=== PATIENT | female | born 1940 | race Caucasian/White ===

== ENCOUNTER 2016-08-31 08:02 | Outpatient (RCR) | payer MEDICARE, OTHER | END 2016-09-27 10:37 | disposition home or self-care (01) | PROVIDERS: ATTEND Nurse Practitioner Family | DX: M51.36 Other intervertebral disc degeneration, lumbar region (principal); M51.37 Other intervertebral disc degeneration, lumbosacral region ==

== ENCOUNTER → 2017-06-10 | Outpatient (CLI) | payer MEDICARE, OTHER ==
--- NOTE | 2017-06-11 10:31 | Diagnostic Imaging Report ---
EXAMINATION: Bilateral screening mammogram 2D views with tomosynthesis. The current study was also evaluated with a Computer Aided Detection (CAD) system. INDICATION: Screening. PERSONAL HISTORY: No current complaints stated on the questionnaire. COMPARISON: 06/11/2016. FINDINGS: The breasts are composed of heterogeneously dense parenchyma which may decrease mammographic sensitivity. There is no mass, architectural distortion, or suspicious cluster of calcifications. Allowing for technique and positional differences, no suspicious change is seen. IMPRESSION: No significant change. ACR BI-RADS Category 2: Benign findings. Result letter will be mailed to the patient. Note: At least 10% of breast cancer is not imaged by mammography. Dictated by: Dictated on workstation # [id number]
== END ==
LOC: RAD 09:45
PROVIDERS: ATTEND Nurse Practitioner
DX: Z12.31 Encounter for screening mammogram for malignant neoplasm of breast (principal)
CPT/HCPCS: 77067

== ENCOUNTER → 2018-06-03 | Outpatient (CLI) | payer MEDICARE, OTHER ==
--- NOTE | 2018-06-03 19:44 | Diagnostic Imaging Report ---
INDICATION: Routine screening. COMPARISON: Comparison is made with prior studies from 06/10/2017 and 05/30/2016. TECHNIQUE: 2D and 3D bilateral screening mammography was performed with computer-aided detection (CAD) system. FINDINGS: Both breasts are heterogeneously dense, limiting the sensitivity of mammography. The parenchymal pattern is stable. No discrete mass or malignant appearing microcalcifications are seen. The axillae are unremarkable. IMPRESSION: No mammographic features suspicious for malignancy are identified. ACR BI-RADS Category 1: Negative. Result letter will be mailed to the patient. Note: At least 10% of breast cancer is not imaged by mammography. Dictated by: Dictated on workstation # [id number]
== END ==
LOC: RAD 12:55
PROVIDERS: ATTEND Internal Medicine
DX: Z12.31 Encounter for screening mammogram for malignant neoplasm of breast (principal)
CPT/HCPCS: 77067

== ENCOUNTER 2018-09-10 10:27 | Observation (INO) | payer MEDICARE, OTHER ==
[~2018-09-10] VITALS: Ht 165.1 cm; Wt 65.3 kg
[2018-09-10] MEDS ORDERED: GABA-486 PO (11:10)
[2018-09-10] MEDS ORDERED: LOSA25TA6 PO (11:10)
[2018-09-10 11:40] LABS: BASOPHILS % (AUTO) 0 % (0-10); EOSINOPHILS # (AUTO) 0.2 10^3/uL (0.0-0.3); EOSINOPHILS % (AUTO) 2 % (0-10); HEMATOCRIT 40 % (35-52); HEMOGLOBIN 13.1 G/DL (11.5-16.0); LYMPHOCYTES # (AUTO) 1.3 X 10^3 (1.0-4.0); LYMPHOCYTES % (AUTO) 14 % (12-44); MEAN CORPUSCULAR HEMOGLOBIN 30 PG (25-34); MEAN CORPUSCULAR HGB CONC 33 G/DL (32-36); MEAN CORPUSCULAR VOLUME 91 FL (80-99); MEAN PLATELET VOLUME 9.1 FL (7.4-10.4); MONOCYTES # (AUTO) 0.4 X 10^3 (0.0-1.0); MONOCYTES % (AUTO) 4 % (0-12); NEUTROPHILS % (AUTO) 80 % (42-75); PLATELET COUNT 258 10^3/uL (130-400); RED BLOOD COUNT 4.44 10^6/uL (4.35-5.85); RED CELL DISTRIBUTION WIDTH 13.1 % (10.0-14.5)
--- NOTE | 2018-09-10 11:43 | ED Syncope ---
General Chief Complaint: Dizziness/Syncope Stated Complaint: DIZZINESS;NAUSEA Nursing Triage Note: TO ED PER W/C REPORTS WAS WALKING TO BATHROOM WHEN ONSET OF BEING DIZZY. HAS HX OF BEING DIZZY TOOK HER MECLIZINE TODAY. REPORT HAS SOME RELIEF BUT NOT COMPLETLEY GONE DID VOMIT WITH. Source of Information: Patient Exam Limitations: No Limitations (WINNIE RUFFIN) History of Present Illness Date Seen by Provider: Sep 10, 2018 Time Seen by Provider: 11:00 Initial Comments Patient is a 78-year-old female who presents to the emergency room with complaints of increasing dizziness for the past week. She reports that she has episodes of dizziness and vertigo from time to time and takes meclizine that usually helps but for the past week the dizziness has become worse and the meclizine does not resolve it completely. She reports that it is worse when she has her eyes open. She denies any shortness of breath, chest pain, palpitations , nausea, vomiting, or fevers. Current Symptoms: Dizziness (WINNIE RUFFIN) Allergies and Home Medications Allergies Coded Allergies: Benzocaine (Unverified Allergy, 02/13/11) Uncoded Allergies: PCN (Allergy, Unknown, 02/13/11) FORMALIN (Allergy, 02/13/11) Patient Home Medication List Home Medication List Reviewed: Yes (WINNIE RUFFIN) Review of Systems Constitutional: see HPI, dizziness; No fever Cardiovascular: no symptoms reported, see HPI (WINNIE RUFFIN) All Other Systems Reviewed Negative Unless Noted: Yes (WINNIE RUFFIN) Past Fyxazlw-Ttmrkl-Evpjmk Hx Past Med/Social Hx: Reviewed Nursing Past Med/Soc Hx (WINNIE RUFFIN) Patient Social History Alcohol Use: Denies Use Recreational Drug Use: No Smoking Status: Never a Smoker Recent Foreign Travel: No Contact w/Someone Who Travel: No Recent Infectious Disease Expo: No (WINNIE RUFFIN) Past Medical History Surgeries: Yes Respiratory: No Cardiac: Yes Hypertension Neurological: No Reproductive Disorders: No 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 oz. 65.483538bh; BMI Method:Stated General Appearance: No Apparent Distress, WD/WN HEENT: PERRL/EOMI, TMs Normal, Normal ENT Inspection, Pharynx Normal, Moist Mucous Membranes Neck: Full Range of Motion, Normal Inspection, Non Tender, Supple Cardiovascular: Regular Rate, Rhythm, No Edema, No Gallop, No JVD, No Murmur, Normal Peripheral Pulses Respiratory: Chest Non Tender, Lungs Clear, Normal Breath Sounds, No Accessory Muscle Use, No Respiratory Distress Gastrointestinal: Normal Bowel Sounds, No Organomegaly, No Pulsatile Mass, Non Tender, Soft Extremities: Normal Capillary Refill, Normal Inspection, Normal Range of Motion , Non Tender, No Calf Tenderness, No Pedal Edema Neurologic/Psychiatric: Alert, Oriented x3, No Motor/Sensory Deficits, Normal Mood/Affect Cranial Nerves: Normal Hearing, Normal Speech, PERRL Coordination/Gait: Normal Finger to Nose Motor/Sensory: No Motor Deficit, No Sensory Deficit Skin: Normal Color, Warm/Dry (WINNIE RUFFIN) HEENT: PERRL/EOMI, Pharynx Normal Cardiovascular: Regular Rate, Rhythm, No Murmur Respiratory: Lungs Clear, Normal Breath Sounds Neurologic/Psychiatric: Alert, Oriented x3, No Motor/Sensory Deficits (MELANIA TRINH MD) Progress/Results/Core Measures Results/Orders Lab Results Laboratory Tests Test 09/10/18 11:20 09/10/18 13:46 Range/Units White Blood Count 10.0 4.3-11.0 10^3/uL Red Blood Count 4.44 4.35-5.85 10^6/uL Hemoglobin 13.1 11.5-16.0 G/DL Hematocrit 40 35-52 % Mean Corpuscular Volume 91 80-99 FL Mean Corpuscular Hemoglobin 30 25-34 PG Mean Corpuscular Hemoglobin Concent 33 32-36 G/DL Red Cell Distribution Width 13.1 10.0-14.5 % Platelet Count 258 130-400 10^3/uL Mean Platelet Volume 9.1 7.4-10.4 FL Neutrophils (%) (Auto) 80 H 42-75 % Lymphocytes (%) (Auto) 14 12-44 % Monocytes (%) (Auto) 4 0-12 % Eosinophils (%) (Auto) 2 0-10 % Basophils (%) (Auto) 0 0-10 % Neutrophils # (Auto) 8.0 H 1.8-7.8 X 10^3 Lymphocytes # (Auto) 1.3 1.0-4.0 X 10^3 Monocytes # (Auto) 0.4 0.0-1.0 X 10^3 Eosinophils # (Auto) 0.2 0.0-0.3 10^3/uL Basophils # (Auto) 0.0 0.0-0.1 10^3/uL Sodium Level 139 135-145 MMOL/L Potassium Level 4.0 3.6-5.0 MMOL/L Chloride Level 105 98-107 MMOL/L Carbon Dioxide Level 24 21-32 MMOL/L Anion Gap 10 5-14 MMOL/L Blood Urea Nitrogen 29 H 7-18 MG/DL Creatinine 0.82 0.60-1.30 MG/DL Estimat Glomerular Filtration Rate > 60 BUN/Creatinine Ratio 35 Glucose Level 134 H 70-105 MG/DL Calcium Level 9.5 8.5-10.1 MG/DL Corrected Calcium 9.2 8.5-10.1 MG/DL Total Bilirubin 0.5 0.1-1.0 MG/DL Aspartate Amino Transf (AST/SGOT) 24 5-34 U/L Alanine Aminotransferase (ALT/SGPT) 20 0-55 U/L Alkaline Phosphatase 89 40-136 U/L Total Protein 7.4 6.4-8.2 GM/DL Albumin 4.4 3.2-4.5 GM/DL Urine Color YELLOW Urine Clarity CLEAR Urine pH 7 5-9 Urine Specific [place] 1.010 L 1.016-1.022 Urine Protein 2+ H NEGATIVE Urine Glucose (UA) NEGATIVE NEGATIVE Urine Ketones 3+ H NEGATIVE Urine Nitrite NEGATIVE NEGATIVE Urine Bilirubin NEGATIVE NEGATIVE Urine Urobilinogen NORMAL NORMAL MG/DL Urine Leukocyte Esterase NEGATIVE NEGATIVE Urine RBC (Auto) 2+ H NEGATIVE Urine RBC 2-5 H /HPF Urine WBC 2-5 /HPF Urine Squamous Epithelial Cells RARE /HPF Urine Renal Epithelial Cells NONE /HPF Urine Crystals NONE /LPF Urine Bacteria NEGATIVE /HPF Urine Casts PRESENT /LPF Urine Hyaline Casts RARE /LPF Urine Mucus NEGATIVE /LPF Urine Yeast TRACE /HPF Urine Culture Indicated NO (MELANIA TRINH MD) My Orders Orders - MELANIA TRINH MD Hydralazine Injection (Apresoline Inject (09/10/18 13:15) Ns Iv 500 Ml (Sodium Chloride 0.9%) (09/10/18 13:34) Amlodipine Tablet (Norvasc Tablet) (09/10/18 14:45) (MELANIA TRINH MD) Medications Given in ED Current Medications Medications Dose Ordered Sig/Starla Route Start Time Stop Time Status Last Admin Dose Admin Amlodipine Besylate 10 mg ONCE ONCE PO 09/10/18 14:45 09/10/18 14:46 DC 09/10/18 14:46 10 MG Clonidine HCl 0.2 mg ONCE ONCE PO 09/10/18 12:15 09/10/18 12:16 DC 09/10/18 12:27 0.2 MG Hydralazine HCl 10 mg ONCE ONCE IV 09/10/18 13:15 09/10/18 13:16 DC 09/10/18 13:11 10 MG Ondansetron HCl 8 mg ONCE ONCE IVP 09/10/18 12:30 09/10/18 12:31 DC 09/10/18 12:32 8 MG Sodium Chloride 500 ml @ 0 mls/hr Q0M ONCE IV 09/10/18 13:34 09/10/18 13:35 DC 09/10/18 13:49 500 MLS/HR (MELANIA TRINH MD) Vital Signs/I&O 09/10/18 09/10/18 10:30 13:24 Temp 96.4 Pulse 60 64 Resp 18 15 B/P (MAP) 210/82 (124) 176/70 (105) Pulse Ox 99 (MELANIA TRINH MD) Blood Pressure Mean: 124 Progress Progress Note : Time: 12:28 Progress Note Patient was assisted to the restroom by nursing staff to collect a urine sample. She was able to void but also had an episode of diarrhea contaminating the sample. In assisting her back to bed she became nauseated and vomited. Zofran was ordered. I will be sending the patient to CT scan of her head. (WINNIE RUFFIN) Progress Note : Progress Note 1315: I have assumed care of the patient from Winnie Ruffin APRN. I have seen and examined the patient. I agree with above except as indicated. Hydralazine [address] does not show any acute findings. Pending UA. 1350: UA collected via straight catheter. Normal saline 500 mL bolus. Patient's blood pressure is improved some but still remains 180s over 70s. Monitor patient. 1435: Amlodipine 10 mg IV ordered. Patient still has blood pressures in the 180s systolic. Due to her labile hypertension, patient will need admission. I did discuss the case with Dr. Leavitt she agrees to admission, observation status. Nausea and vomiting and dizziness have improved. She has completed her saline bolus. We will continue hydration inpatient. Discussed with patient and family who agree with plan. (MELANIA TRINH MD) Initial ECG Impression Date: Sep 10, 2018 Initial ECG Impression Time: 11:21 Initial ECG Rate: 56 Initial ECG Rhythm: Normal Sinus Initial ECG Intervals: Normal Initial ECG Impression: Normal Initial ECG Comparisson: Unchanged Comment Atrial premature complexes noted. (WINNIE RUFFIN) Diagnostic Imaging Diagonstic Imaging: CT Plain Films/CT/US/NM/MRI: head Comments [facility], [place] NAME: JIMBO THOMPSON [facility] REC#: [id number] PT STATUS: REG ER : 1940 PHYSICIAN: WINNIE RUFFINP ADMIT DATE: 09/10/18/ER Draft Date of Exam:09/10/18 CT HEAD WO PROCEDURE: CT head without contrast. TECHNIQUE: Multiple contiguous axial images were obtained through the brain without the use of intravenous contrast. INDICATION: Dizziness. FINDINGS: Ventricles and sulci are diffusely prominent. There is moderate low density within the deep white matter of both hemispheres. No hemorrhage is identified. There is no geographic low density to indicate a territorial infarct. Visualized paranasal sinuses are clear. IMPRESSION: Involutional findings within brain without CT evidence of acute intracranial abnormality. Dictated on workstation # [id number] Dict: 09/10/18 1254 Trans: 09/10/18 1258 [facility] [id number] Interpreted by: IRIS ESTEVEZ MD Electronically signed by: (MELANIA TRINH MD) Departure Communication (Admissions) Time/Spoke to Admitting Phy: 14:35 (MELANIA TRINH MD) Impression Primary Impression: Labile hypertension Additional Impressions: Nausea and vomiting Qualified Codes: R11.2 - Nausea with vomiting, unspecified Dizziness Disposition: ADMITTED INPATIENT Condition: Stable Admissions Decision to Admit Reason: Admit from ER (General) Decision to Admit/Date: Sep 10, 2018 Time/Decision to Admit Time: 14:35 (MELANIA TRINH MD) Departure-Patient Inst. Referrals: SHAY BELTRAN MD (PCP/Family) Primary Care Physician WINNIE RUFFIN Sep 10, 2018 11:43 MELANIA TRINH MD Sep 10, 2018 13:21
[2018-09-10 11:57] LABS: ALANINE AMINOTRANSFERASE 20 U/L (0-55); ALBUMIN 4.4 GM/DL (3.2-4.5); ALKALINE PHOSPHATASE 89 U/L (40-136); BILIRUBIN,TOTAL 0.5 MG/DL (0.1-1.0); BUN/CREATININE RATIO 35; CALCIUM 9.5 MG/DL (8.5-10.1); CARBON DIOXIDE 24 MMOL/L (21-32); CHLORIDE 105 MMOL/L (98-107); CREATININE SERUM 0.82 MG/DL (0.60-1.30); GFR ESTIMATED > 60; GLUCOSE 134 MG/DL (70-105); SODIUM 139 MMOL/L (135-145); TOTAL PROTEIN 7.4 GM/DL (6.4-8.2)
[2018-09-10] MEDS ORDERED: cloNIDine 0.2 MG (CATAPRES) TAB PO ONE (12:15)
[2018-09-10] MEDS ORDERED: ONDANSETRON 4 MG/2 ML (SDV) Z0FRAN ONE (12:26)
[2018-09-10] MEDS ORDERED: ONDANSETRON 4 MG/2 ML (SDV) Z0FRAN IVP ONE (12:30)
--- NOTE | 2018-09-10 12:59 | Diagnostic Imaging Report ---
PROCEDURE: CT head without contrast. TECHNIQUE: Multiple contiguous axial images were obtained through the brain without the use of intravenous contrast. INDICATION: Dizziness. FINDINGS: Ventricles and sulci are diffusely prominent. There is moderate low density within the deep white matter of both hemispheres. No hemorrhage is identified. There is no geographic low density to indicate a territorial infarct. Visualized paranasal sinuses are clear. IMPRESSION: Involutional findings within brain without CT evidence of acute intracranial abnormality. Dictated by: Dictated on workstation # [id number]
[2018-09-10] MEDS ORDERED: hydrALAZINE (APESOLINE) 20 MG/ML VIAL IV ONE (13:15)
[2018-09-10 13:24] VITALS: BP 176/70
[2018-09-10] MEDS ORDERED: NS IV 500 ML 500 ML IV ONE (13:34)
[2018-09-10 13:56] LABS: BILIRUBIN,URINE NEGATIVE (NEGATIVE); CLARITY,URINE CLEAR; COLOR,URINE YELLOW; GLUCOSE, URINE (UA) NEGATIVE (NEGATIVE); KETONES,URINE 3+ (NEGATIVE); LEUKOCYTE ESTERASE ,URINE NEGATIVE (NEGATIVE); NITRITE,URINE NEGATIVE (NEGATIVE); PH,URINE 7 (5-9); PROTEIN,URINE 2+ (NEGATIVE); UROBILINOGEN,URINE NORMAL (NORMAL)
[2018-09-10 14:29] LABS: BACTERIA,URINE NEGATIVE /HPF; HYALINE CASTS, URINE RARE /LPF; SQUAMOUS EPITHELIAL CELL,UR RARE /HPF
[2018-09-10 14:30] LABS: YEAST,URINE TRACE /HPF
[2018-09-10] MEDS ORDERED: amLODIPine 10 MG (NORVASC) TAB PO ONE (14:45)
[2018-09-10 15:25] VITALS: BP 178/68
[2018-09-10] MEDS ORDERED: ONDANSETRON 4 MG/2 ML (SDV) Z0FRAN IVP PRN (15:45)
[2018-09-10] MEDS: NS IV 1000 ML 1,000 ML IV SCH (15:50)
[2018-09-10] MEDS ORDERED: LEVO5TAB28 PO (15:55)
[2018-09-10] MEDS ORDERED: FLUT9.9S NS (15:55)
[2018-09-10] MEDS ORDERED: MECL-106 PO (15:56)
[2018-09-10] MEDS ORDERED: OMG1KC PO (16:00)
[2018-09-10] MEDS ORDERED: MULT-35 PO (16:00)
[2018-09-10] MEDS ORDERED: UBID100C44 PO (16:00)
[2018-09-10] MEDS ORDERED: ASCO-262 PO (16:00)
[2018-09-10] MEDS ORDERED: GLUC100016 PO (16:00)
[2018-09-10] MEDS ORDERED: CALC-927 PO (16:00)
[2018-09-10] MEDS ORDERED: ASPI-983 PO (16:00)
[2018-09-10] MEDS ORDERED: CHOL10007 PO (16:00)
[2018-09-10] MEDS ORDERED: MECLIZINE 25 MG (ANTIVERT) TAB PO PRN (19:00)
[2018-09-10] MEDS ORDERED: ONDANSETRON 4 MG/2 ML (SDV) Z0FRAN IV PRN (20:15)
[2018-09-10] MEDS ORDERED: ACETAMINOPHEN 325 MG TABLET PO PRN (20:15)
[2018-09-10] MEDS ORDERED: NITROGLYCERIN 2% OINT 1 GM UNIT DOSE PACKET TOP PRN (20:15)
[2018-09-10] MEDS ORDERED: ANTACID SUSP 30 ML UDC (MYLANTA) PO PRN (20:15)
[2018-09-10] MEDS ORDERED: ACETAMINOPHEN 500 MG TAB (TYLENOL) PO PRN (20:15)
[2018-09-10] MEDS ORDERED: BENZONATATE 100 MG (TESSALON) CAPSULE PO PRN (20:15)
[2018-09-10] MEDS ORDERED: MILK OF MAGNESIA 400 MG/5 ML 30 ML UDC PO PRN (20:15)
[2018-09-10 20:25] VITALS: BP 127/59
[2018-09-10] MEDS: GABAPENTIN 100 MG (NEURONTIN) CAP PO SCH (20:51)
[2018-09-10] MEDS ORDERED: FLUTICASONE NASAL SPRAY (FLONASE) 16 GM BTL NS SCH (21:00)
[2018-09-10] MEDS ORDERED: LORATADINE (CLARITIN) 10 MG TAB PO SCH (21:00)
[2018-09-10] MEDS ORDERED: LOSARTAN 25 MG (COZAAR) TAB PO SCH (21:00)
[2018-09-10] MEDS ORDERED: NON-FORMULARY MEDICATION 1 EA EA (Losartan Potassium 25 MG) PO SCH (21:00)
[2018-09-10] MEDS ORDERED: LEVOCETIRIZINE 5 MG TAB (XYZAL) NON-FORMULARY PO SCH (21:00)
[2018-09-10] MEDS ORDERED: NON-FORMULARY MEDICATION 1 EA EA (Fluticasone Propionate (Flonase Allergy Relief) 2 SPRAY) NS SCH (21:00)
[2018-09-11 00:09] VITALS: BP 144/68
[2018-09-11] MEDS: NS IV 1000 ML 1,000 ML IV SCH ×2 (01:39→11:29)
[2018-09-11 04:00] VITALS: BP 136/62
[2018-09-11 05:49] LABS: BASOPHILS % (AUTO) 0 % (0-10); EOSINOPHILS # (AUTO) 0.2 10^3/uL (0.0-0.3); EOSINOPHILS % (AUTO) 3 % (0-10); HEMATOCRIT 36 % (35-52); HEMOGLOBIN 11.7 G/DL (11.5-16.0); LYMPHOCYTES # (AUTO) 1.8 X 10^3 (1.0-4.0); LYMPHOCYTES % (AUTO) 29 % (12-44); MEAN CORPUSCULAR HEMOGLOBIN 30 PG (25-34); MEAN CORPUSCULAR HGB CONC 33 G/DL (32-36); MEAN CORPUSCULAR VOLUME 91 FL (80-99); MONOCYTES # (AUTO) 0.4 X 10^3 (0.0-1.0); MONOCYTES % (AUTO) 7 % (0-12); NEUTROPHILS # (AUTO) 3.8 X 10^3 (1.8-7.8); NEUTROPHILS % (AUTO) 61 % (42-75); PLATELET COUNT 260 10^3/uL (130-400); RED BLOOD COUNT 3.93 10^6/uL (4.35-5.85); RED CELL DISTRIBUTION WIDTH 13.3 % (10.0-14.5); WHITE BLOOD COUNT 6.3 10^3/uL (4.3-11.0)
[2018-09-11 06:14] LABS: ALANINE AMINOTRANSFERASE 15 U/L (0-55); ALBUMIN 3.6 GM/DL (3.2-4.5); ALKALINE PHOSPHATASE 79 U/L (40-136); BILIRUBIN,TOTAL 0.6 MG/DL (0.1-1.0); BUN/CREATININE RATIO 27; CALCIUM 8.7 MG/DL (8.5-10.1); CARBON DIOXIDE 21 MMOL/L (21-32); CHLORIDE 109 MMOL/L (98-107); CREATININE SERUM 0.71 MG/DL (0.60-1.30); GFR ESTIMATED > 60; GLUCOSE 91 MG/DL (70-105); POTASSIUM 3.5 MMOL/L (3.6-5.0); SODIUM 140 MMOL/L (135-145); TOTAL PROTEIN 5.9 GM/DL (6.4-8.2)
[2018-09-11 08:00] VITALS: BP 144/65
[2018-09-11] MEDS ORDERED: amLODIPine 5 MG (NORVASC) TAB PO SCH (09:00)
[2018-09-11] MEDS ORDERED: amLODIPine 10 MG (NORVASC) TAB PO SCH (09:00)
[2018-09-11] MEDS: GABAPENTIN 100 MG (NEURONTIN) CAP PO SCH (09:13)
--- NOTE | 2018-09-11 09:14 | Short Stay Summary-Hospitalist ---
History of Present Illness HPI/Chief Complaint Pt is a 78yoCF with a PMH of HTN who presented to the ER with CC of dizziness that started abruptly yesterday afternoon. She states she didnt' feel well and walked ot her bedroom and noticed her hamper was spinning. She lowered herself to the ground and rested her head on the hamper to see if it would pass. When it did not resolve with rest she crawled to her phone and called her daughter who called 911. She was found to be very hypertensive at that time and EMS helped her get to the car and her daughter drove her to the hospital. She remained hypertensive here with SBP 210. This was treated with clonidine and hydralazine without much improvement. She developed dry heaving at that time too and needed antiemetics. She was then given amlodipine and admitted for hypertensive urgency for observation. Source: patient Date Seen 09/11/18 Time Seen by a Provider: 09:30 Attending Physician Benedict Leavitt MD PCP Steven Restrepo MD Referring Physician Date of Admission Sep 10, 2018 at 14:54 Home Medications & Allergies Home Medications Reviewed patient Home Medication Reconciliation performed by pharmacy medication reconciliations paint technician and/or nursing. Patients Allergies have been reviewed. Allergies Allergies Coded Allergies benzocaine (Unverified Allergy, Unknown, 09/10/18) Uncoded Allergies FORMALIN ( Allergy, Unknown, 09/10/18) PCN ( Allergy, Unknown, 02/13/11) Past Icnwdtu-Kksmuc-Jynwns Hx Past Med/Social Hx: Reviewed Nursing Past Med/Soc Hx Patient Social History Alcohol Use: Denies Use Recreational Drug Use: No Smoking Status: Never a Smoker Physical Abuse Screen: No Sexual Abuse: No Recent Foreign Travel: No Contact w/other who traveled: No Recent Infectious Disease Expo: No Immunizations Up To Date Date of Pneumonia Vaccine: Aug 15, 2018 Date of Influenza Vaccine: Jul 07, 2018 Seasonal Allergies Seasonal Allergies: Yes Past Medical History Cardiac: Hypertension Reproductive: No Sexually Transmitted Disease: No HIV/AIDS: No Menopausal HEENT: Double Vision History of Blood Disorders: No Adverse Reaction to Blood Perez: No Family History Reviewed Nursing Family Hx Diabetes mellitus 19 FATHER G8 SISTER Hypertension 19 FATHER Review of Systems Constitutional: dizziness EENTM: No blurred vision, No double vision, No nose congestion, No throat pain Respiratory: No cough, No dyspnea on exertion, No short of breath Cardiovascular: No chest pain, No edema, No palpitations Gastrointestinal: No abdominal pain, No constipation, No diarrhea, No nausea, No vomiting Genitourinary: No dysuria, No frequency Musculoskeletal: No joint pain, No muscle pain Skin: No lesions, No rash Psychiatric/Neurological: Denies Headache, Denies Numbness, Denies Tingling Physical Exam Physical Exam Vital Signs Vital Signs - First Documented 09/10/18 09/10/18 09/10/18 10:30 13:24 15:10 Temp 96.4 Pulse 60 Resp 18 B/P (MAP) 210/82 (124) Pulse Ox 99 O2 Delivery Room Air Capillary Refill : Less Than 3 Seconds Height, Weight, BMI Height: 5'5.00" Weight: 144lbs. 0.7oz. 65.134897kq; 24.0 BMI Method:Stated General Appearance: No Apparent Distress, WD/WN HEENT: PERRL/EOMI, Moist Mucous Membranes Neck: Non Tender, Supple Respiratory: Lungs Clear, No Respiratory Distress Cardiovascular: Regular Rate, Rhythm, No Murmur Gastrointestinal: Normal Bowel Sounds, Non Tender, Soft Extremity: Normal Capillary Refill, No Calf Tenderness Neurologic/Psychiatric: Alert, Oriented x3, Normal Mood/Affect Skin: Normal Color, Warm/Dry Results Results/Procedures Labs Laboratory Tests 09/11/18 05:40 Patient resulted labs reviewed. Imaging: Reviewed Imaging Report Short Stay Diagnosis Discharge Diagnosis-Short Stay Admission Diagnosis Hypertensive Urgency Final Discharge Diagnosis Hypertensive Urgency Conclusion Plan Hypertensive Urgency BP improved today with amlodipine Continue Amlodipine and losartan Vertigo Meclizine prn PT/OT to evaluate gait Will DC home if steady gait Clinical Quality Measures DVT/VTE Risk/Contraindication: Risk Factor Score Per Nursin RFS Level Per Nursing on Admit: 2=Moderate BENEDICT LEAVITT MD Sep 11, 2018 09:14
[2018-09-11] MEDS ORDERED: AMLO5TAB7 PO (09:27)
--- NOTE | 2018-09-11 11:49 | Discharge Inst-Simple/Standard ---
Discharge Inst-Standard Discharge Medications New, Converted or Re-Newed RX: Transmitted to Pharmacy Patient Instructions/Follow Up Plan of Care/Instructions/FU: Please continue to take your medications as written. Please follow up with Dr Restrepo's office next week. Activity as Tolerated: Yes Discharge Diet: Cardiac Diet Return to The Hospital For: Chest pain, shortness of breath, worsening dizziness, confusion, if you feel you are getting worse. BENEDICT ROLLINS MD Sep 11, 2018 11:49
--- NOTE | 2018-09-11 11:50 | Physical Therapy Evaluation ---
PT Evaluation-General Medical Diagnosis Admission Date Sep 10, 2018 at 14:54 Medical Diagnosis: Labile HTN/N&V/dizziness Onset Date: Sep 10, 2018 Therapy Diagnosis Therapy Diagnosis: debility Height/Weight Height (Feet): 5 Height (Inches): 5.00 Weight (Pounds): 144 Weight (Ounces): 0.7 Precautions Precautions/Isolations: Fall Prevention, Standard Precautions Weight Bear Status Right Lower Extremity: Right Weight Bearing/Tolerated Left Lower Extremity: Left Weight Bearing/Tolerated Referral Physician: Dagmar Reason for Referral: Evaluation/Treatment Medical History Pertinent Medical History: HTN Current History ED secondary to uncontrolled dizziness with vomiting. Currently resolved Reviewed History: Yes Social History Home: Single Level Current Living Status: Alone Prior/Core FIM Prior Level of Function Therapy Code Descriptions/Definitions Functional [place] Measure: 0=Not Assessed/NA 4=Minimal Assistance 1=Total Assistance 5=Supervision or Setup 2=Maximal Assistance 6=Modified [place] 3=Moderate Assistance 7=Complete [place] Therapy Quality Codes: 6 Independent with activity with or without an assistive device 5 Patient requires set up or clean up by helper. Patient completes activity by themselves 4 Supervision or touching assist (CGA). [place] provide cues , steadying assist 3 The helper provides less than half the effort to complete the activity 2 The helper provides more than half the effort to complete the activity 1 Dependent. The helper does all the effort to complete an activity 7 Patient refused to complete or attempt activity 9 The patient did not perform the activity before the current illness or injury 88 Not attempted due to Medical conditions or safety concerns Functional Abilities and Goals: Independent: Patient completed the activities by him/herself, with or without an assistive device, with no assistance from a helper. Needed Some Help: Patient needed partial assistance from another person to complete activities. Dependent: A helper completed the activities for the patient. Unknown: Not Applicable: Bed Mobility: 7 Transfers (B,C,W/C) (FIM): 7 Gait: 6 Stairs: 6 Prior Devices Use: None, Walker Prior Device Use: FWW PRN PT Evaluation-Current Subjective Patient agrees to PT. No c/o at this time. Pain Numeric Pain Scale: 0-No Pain Location: No Pain Reported Objective Patient Orientation: Normal For Age Problem Solving: Good Attachments: IV ROM/Strength ROM Lower Extremities bilateral LE WFL Strength Lower Extremities 4+/5 grossly bilaterally Integumentary/Posture Integumentary refer to nursing notes Bowel Incontinence: No Bladder Incontinence: No Posture slight trunk flexed posture Neuromuscular (Tone, Coordination, Reflexes) grossly intact Sensory Vision: Wears Glasses Hearing: Functional Sensation Right Lower Extremit: Intact Sensation Left Lower Extremity: Intact Transfers Therapy Code Descriptions/Definitions Functional [place] Measure: 0=Not Assessed/NA 4=Minimal Assistance 1=Total Assistance 5=Supervision or Setup 2=Maximal Assistance 6=Modified [place] 3=Moderate Assistance 7=Complete [place] Transfers (B, C, W/C) (FIM): 7 Scootin Rollin Supine to/from Sit: 7 Sit to/from Stand: 7 Gait Mode of Locomotion: Walk Anticipated Mode of Locomotion: Walk Gait (FIM): 6 Distance (FIM): 3=150 ft Distance: 350' Gait Level of Assist: 6 Gait Assistive Device: FWW Comments/Gait Description steady, functional gait sequence Balance Sitting Static: Normal Sitting Dynamic: Normal Standing Static: Normal Standing Dynamic: Normal Assessment/Needs 78 y.o .female, is currently at [facility] with all gross motor skills. Patient has established FWW and 4WW at home with good family support. No c/o dizziness currently. Dr. Leavitt notified. No skilled PT indicated. Rehab Potential: Good PT Plan Treatment/Plan Treatment Plan: Discontinue PT, goals met Treatment Plan: Other Treatment Duration: Sep 11, 2018 Frequency: 1 time per week Estimated Hrs Per Day: .25 hour per day Patient and/or Family Agrees t: Yes Discharge Recommendations Therapy D/C Recommendations: Home w/ Family Support, Home Independently Time/GCodes Time In: 1127 Time Out: 1141 Total Billed Treatment Time: 14 Total Billed Treatment 1 visit EVLowC 14 min G Codes Necessary: Yes PT/OT Therapy GCodes Therapy Functional Limitation: Physical Therapy Test(s)/Tool used to determine: Level of Assistance Scale Functional Limitation-Current Charge Code: MOBCUR Modifier: CI Functional Limitation-Goal Charge Code: MOBGOAL Modifier: CI Functional Limitation-D/C Charge Codes: MOBDC Modifier: CI ALENA MEYER PT Sep 11, 2018 11:50
[2018-09-11 12:00] VITALS: BP 138/68
[2018-09-11 13:45] VITALS: BP 144/65
== END 2018-09-11 11:50 | disposition home or self-care (01) ==
LOC: EDUNIT# 10:27 → ER 10:28 → 4TH 14:25 → UNDOADMOB 14:54 → 4TH 15:14 → UNDODISOB 09-11 13:45
PROVIDERS: ADMIT Family Medicine; ATTEND Family Medicine
DX: I16.0 Hypertensive urgency (principal); R42 Dizziness and giddiness; R11.2 Nausea with vomiting, unspecified
CPT/HCPCS: 36415; 51701; 70450; 80053; 81000; 85025; 93005; 96361; 96374; 96375

== ENCOUNTER → 2019-06-09 | Outpatient (CLI) | payer MEDICARE, OTHER ==
[~2019-06-09] MED LIST: AMLO5TAB9 PO; ASCO-262 PO; ASPI-983 PO; CALC-927 PO; CHOL10007 PO; FLUT9.9S NS; GABA-486 PO; GLUC100016 PO; LEVO5TAB28 PO; LOSA25TA41 PO; MECL-106 PO; MULT-35 PO; OMG1KC PO; UBID100C44 PO
--- NOTE | 2019-06-09 12:23 | Diagnostic Imaging Report ---
Indication: Routine screening. Comparison is made with prior mammogram 06/03/2018 and 06/10/2017. 2-D and 3-D bilateral screening mammography was performed with CAD. Both breasts are heterogeneously dense, limiting the sensitivity of mammography. No mass or malignant-appearing microcalcifications are seen. The axillae are unremarkable. Impression: BI-RADS category 1. No mammographic features suspicious for malignancy are identified. ACR BI-RADS Category 1: Negative. Result letter will be mailed to the patient. Note: At least 10% of breast cancer is not imaged by mammography. Dictated by: Dictated on workstation # [id number]
== END ==
LOC: RAD 09:57
PROVIDERS: ATTEND Internal Medicine
DX: Z12.31 Encounter for screening mammogram for malignant neoplasm of breast (principal)
CPT/HCPCS: 77067

== ENCOUNTER → 2021-02-10 | Outpatient (CLI) | payer MEDICARE, OTHER ==
[~2021-02-10] MED LIST changes: +AMLO-250 PO; -AMLO5TAB9 PO; +ASPI-1238 PO; -ASPI-983 PO; -MECL-106 PO; +MECL-149 PO
--- NOTE | 2021-02-13 11:10 | Diagnostic Imaging Report ---
INDICATION: Routine screening. COMPARISON: 06/09/2019 and 06/03/2018. TECHNIQUE: 2D and 3D bilateral screening mammography was performed with CAD. FINDINGS: Both breasts are heterogeneously dense, limiting the sensitivity of mammography. The parenchymal pattern is stable. No mass or malignant appearing microcalcifications are seen. The axillae are unremarkable. IMPRESSION: No mammographic features suspicious for malignancy are identified. ACR BI-RADS Category 1: Negative. Result letter will be mailed to the patient. Note: At least 10% of breast cancer is not imaged by mammography. Dictated by: Dictated on workstation # [id number]
== END ==
LOC: RAD 14:23
PROVIDERS: ATTEND Obstetrics & Gynecology Gynecology
DX: Z12.31 Encounter for screening mammogram for malignant neoplasm of breast (principal)
CPT/HCPCS: 77063; 77067

== ENCOUNTER → 2022-02-26 | Outpatient (CLI) | payer MEDICARE, OTHER ==
--- NOTE | 2022-02-26 13:42 | Diagnostic Imaging Report ---
INDICATION: Routine screening. COMPARISON: 02/10/2021 and 06/09/2019. TECHNIQUE: 2D and 3D bilateral screening mammography was performed with CAD. FINDINGS: Both breasts are heterogeneously dense, limiting the sensitivity of mammography. No mass or malignant-appearing microcalcifications are seen. There are benign parenchymal and vascular calcifications bilaterally. The axillae are unremarkable. IMPRESSION: No mammographic features suspicious for malignancy are identified. ACR BI-RADS Category 2: Benign findings. Result letter will be mailed to the patient. Note: At least 10% of breast cancer is not imaged by mammography. Dictated by: Dictated on workstation # [id number]
== END ==
LOC: RAD 11:15
PROVIDERS: ATTEND Nurse Practitioner Family
DX: Z12.31 Encounter for screening mammogram for malignant neoplasm of breast (principal)
CPT/HCPCS: 77063; 77067

== ENCOUNTER → 2022-12-11 | Outpatient (CLI) | payer MEDICARE, OTHER | LOC: WOUNDCARE 09:03 | PROVIDERS: ATTEND Family Medicine | DX: L89.313 Pressure ulcer of right buttock, stage 3 (principal); L24.A2 Irritant contact dermatitis due to fecal, urinary or dual incontinence; I10 Essential (primary) hypertension | CPT/HCPCS: 11042; A6212; G0463 ==

== ENCOUNTER → 2022-12-17 | Outpatient (CLI) | payer MEDICARE, OTHER | LOC: WOUNDCARE 09:57 | PROVIDERS: ATTEND Family Medicine | DX: L89.313 Pressure ulcer of right buttock, stage 3 (principal); L24.A2 Irritant contact dermatitis due to fecal, urinary or dual incontinence; I10 Essential (primary) hypertension; I96 Gangrene, not elsewhere classified | CPT/HCPCS: 11042; A6212; G0463 ==

== ENCOUNTER → 2022-12-24 | Outpatient (CLI) | payer MEDICARE, OTHER | LOC: WOUNDCARE 09:47 | PROVIDERS: ATTEND Family Medicine | DX: L89.313 Pressure ulcer of right buttock, stage 3 (principal); L24.A2 Irritant contact dermatitis due to fecal, urinary or dual incontinence; I10 Essential (primary) hypertension; I96 Gangrene, not elsewhere classified | CPT/HCPCS: A6212; G0463; 99213 ==